=== PATIENT | male | born 2000 | race Caucasian/White ===

== ENCOUNTER 2020-09-20 01:54 | Emergency (ER) | payer OTHER, BC ==
--- NOTE | 2020-09-20 02:34 | EDM.PDOC ---
ED HPI GENERAL MEDICAL PROBLEM - General Chief Complaint: Laceration Stated Complaint: laceration Time Seen by Provider: 09/20/20 01:55 Source of Information: Reports: Patient History Limitations: Reports: No Limitations - History of Present Illness INITIAL COMMENTS - FREE TEXT/NARRATIVE: crushed tip of the 4-5 finger on the left hand in a cyclinder at work. His nail on the 5th finger is bleeding from under the nail. No break in the skin noted. On the tip of the 4th finger there is a small skin avulsion noted. Has increase in pain to the tip of the fingers to both tips. Good sensation noted to the distal tips of both fingers. Unknown when his last tetanus was received. Onset: Sudden Onset Date: 09/20/20 Onset Time: 13:20 Location: Reports: Upper Extremity, Left - Related Data Allergies Allergy/AdvReac Type Severity Reaction Status Date / Time amoxicillin Allergy Cannot Verified 09/20/20 02:02 Remember azithromycin [From Zithromax] Allergy Cannot Verified 09/20/20 02:02 Remember Penicillins Allergy Cannot Verified 09/20/20 02:02 Remember sulfamethoxazole Allergy Cannot Verified 09/20/20 02:02 [From Bactrim] Remember trimethoprim [From Bactrim] Allergy Cannot Verified 09/20/20 02:02 Remember Home Meds: Home Meds . [No Known Home Meds] 09/20/20 [History] Past Medical History - Past Health History Medical/Surgical History: Denies Medical/Surgical History Neurological History: Reports: Seizure - Past Surgical History Other Neurological Surgeries/Procedures: states he had a seizure once when he was 11 Social & Family History - Tobacco Use Tobacco Use Status *Q: Never Tobacco User ED ROS GENERAL - Review of Systems Review Of Systems: See Below Constitutional: Reports: No Symptoms. Denies: Fever Skin: Reports: Wound (tip of the 5th finger on the left is bleeding under the nail. Nail is slightly lose. Tip is swollen. On the tip of the 4th finger there is a small avulsion of the skin. No bleeding noted to the tip.) ED EXAM, SKIN/RASH Exam: See Below Exam Limited By: No Limitations General Appearance: Alert, WD/WN, Mild Distress Extremities: Other (tips of fingers as noted in the HPI. Minimal amount of bleeding noted.) Neurological: Alert, Oriented Course - Orders/Labs/Meds Orders: Active Orders 24 hr Category Date Time Status Vaccines to be Administered [RC] PER UNIT ROUTINE Care 09/20/20 02:26 Active Hand Comp Min 3V Lt [CR] Stat Exams 09/20/20 02:06 Taken Meds: Medications Discontinued Medications Generic Name Dose Route Start Last Admin Trade Name Bahman PRN Reason Stop Dose Admin Diphtheria/Tetanus/Acell Pertussis 0.5 ml 09/20/20 02:26 Diphtheria,Pertussis(Acell),Tetanus Vaccine 0.5 Ml Syringe IM 09/20/20 02:27 .ONCE ONE Lidocaine HCl 5 ml 09/20/20 01:55 09/20/20 02:05 Lidocaine 1% 5 Ml Sdv INJECT 09/20/20 01:56 5 ml ONETIME ONE Administration - Re-Assessments/Exams Free Text/Narrative Re-Assessment/Exam: 09/20/20 02:30 No fractures noted on xray. Departure - Departure Time of Disposition: 02:31 Disposition: Home, Self-Care 01 Condition: Good Clinical Impression: Laceration - Discharge Information *PRESCRIPTION DRUG MONITORING PROGRAM REVIEWED*: Not Applicable *COPY OF PRESCRIPTION DRUG MONITORING REPORT IN PATIENT PIPER: Not Applicable Referrals: PCP,None [Primary Care Provider] - Forms: ED Department Discharge Additional Instructions: keep fingers clean and dry. change the dressing as needed cut the lose flap of skin off when it dries recheck with any new concerns as noted. - Problem List & Annotations (1) Laceration SNOMED Code(s): 433546162 Code(s): [id number] - Status: Acute Current Visit: Yes - Problem List Review Problem List Initiated/Reviewed/Updated: Yes - My Orders Last 24 Hours: My Active Orders 09/20/20 02:06 Hand Comp Min 3V Lt [CR] Stat 09/20/20 02:26 Vaccines to be Administered [RC] PER UNIT ROUTINE - Assessment/Plan Last 24 Hours: My Active Orders 09/20/20 02:06 Hand Comp Min 3V Lt [CR] Stat 09/20/20 02:26 Vaccines to be Administered [RC] PER UNIT ROUTINE
[2020-09-20] MEDS: Diphtheria,Pertussis(Acell),Tetanus Vaccine 0.5 ML Syringe IM ONE (02:35)
== END 2020-09-20 02:45 | disposition home or self-care (01) ==
LOC: CC.ED 01:54
DX: S61.215A Laceration without foreign body of left ring finger without damage to nail, initial encounter (principal); S61.317A Laceration without foreign body of left little finger with damage to nail, initial encounter; Z88.0 Allergy status to penicillin; Z88.1 Allergy status to other antibiotic agents; Z88.2 Allergy status to sulfonamides; Z23 Encounter for immunization; W23.0XXA Caught, crushed, jammed, or pinched between moving objects, initial encounter; Y92.89 Other specified places as the place of occurrence of the external cause; Y99.0 Civilian activity done for income or pay
CPT/HCPCS: 73130-LT; 90471; 90715; 99283-25

== ENCOUNTER 2024-08-20 07:05 | Emergency (ER) | payer BC ==
[2024-08-20 07:21] LABS: BASOPHILS ABSOLUTE AUTO 0.06 10^3/uL (0.00-0.50); BASOPHILS PERCENT AUTO 0.3 % (0-1); EOSINOPHILS ABSOLUTE AUTO 0.12 10^3/uL (0.00-1.50); EOSINOPHILS PERCENT AUTO 0.6 % (0-6); HEMATOCRIT 52.1 % (42.0-52.0); IMMATURE GRAN ABSOLUTE AUTO 0.26 10^3/uL (0.00-0.49); IMMATURE GRAN PERCENT AUTO 1.4 % (0.0-4.9); LYMPHOCYTES ABSOLUTE AUTO 3.33 10^3/uL (0.60-5.00); LYMPHOCYTES PERCENT AUTO 17.3 % (24-44); MEAN CORPUSCULAR HEMOGLOBIN 29.4 pg (27.0-32.0); MEAN CORPUSCULAR HGB CONC 34.9 g/dL (32.0-36.0); MEAN CORPUSCULAR VOLUME 84.2 fL (83.0-97.0); MONOCYTES ABSOLUTE AUTO 1.31 10^3/uL (0.00-1.50); MONOCYTES PERCENT AUTO 6.8 % (0-10); NEUTROPHILS ABSOLUTE AUTO 14.14 x10^3/uL (1.80-8.00); NEUTROPHILS PERCENT AUTO 73.6 % (41-71); PLATELET COUNT,PLT 356 10^3/uL (150-400); RED BLOOD CELL COUNT 6.19 x10^6/uL (4.50-6.00); WHITE BLOOD CELL COUNT,WBC 19.2 10^3/uL (4.0-11.0)
[2024-08-20] MEDS ORDERED: 50% Dextrose in Water 50 ML Syringe IVPUSH PRN ×2 (07:30→07:47)
[2024-08-20] MEDS ORDERED: Glucagon,Human Recombinant 1 MG Vial IM PRN ×2 (07:30→07:47)
[2024-08-20] MEDS: Insulin Regular, Human 100 Units/ML 10 ML Vial IVPUSH ONE (07:35)
[2024-08-20 07:38] LABS: BASE EXCESS VENOUS -27.2; BICARBONATE,VENOUS 4.3; O2 DELIVERY DEVICE ROOM AIR; O2 SATURATION VENOUS 48; PCO2 VENOUS 20.9; PH,VENOUS 6.92 (7.36-7.41); PO2 VENOUS 41.4
[2024-08-20 07:39] LABS: HEMOGLOBIN 18.2 g/dL (14.0-18.0)
[2024-08-20] MEDS: Sodium Chloride 0.9% 1,000 ML IV ONE ×2 (07:39→08:17)
[2024-08-20 07:47] LABS: ALBUMIN 5.2 g/dL (3.4-5.0); BILIRUBIN TOTAL 0.8 mg/dL (0.0-1.0); CREATININE 1.6 mg/dL (0.7-1.3); EST CRCL DRUG DOSING (CG) 86.03 mL/min; MAGNESIUM 2.5 mg/dL (1.8-2.4); POTASSIUM,K 4.2 mEq/L (3.5-5.0); PROTEIN TOTAL,TP 9.4 g/dL (6.4-8.2)
[2024-08-20] MEDS: fentaNYL 50 MCG/ML SDV IVPUSH ONE ×2 (07:53→08:19)
[2024-08-20] MEDS: Ondansetron 4 MG/2 ML SDV IVPUSH PRN (07:59)
[2024-08-20] MEDS: Insulin Regular in 0.9 % NACL 100 ML IV SCH (08:21)
[2024-08-20] MEDS: Sodium Bicarbonate 150 MEQ in Sodium Chloride 0.9% 1,000 ML IV ONE (08:58)
[2024-08-20] MEDS: Potassium Chloride Riders 20 MEQ in Premix Bag 1 BAG IV ONE (09:02)
[2024-08-20] MEDS: Sodium Bicarbonate 150 MEQ in Dextrose 5% in Water 1,000 ML IV ONE (09:23)
== END 2024-08-20 09:20 ==
LOC: CC.ED 07:05
DX: E10.10 Type 1 diabetes mellitus with ketoacidosis without coma (principal); D72.829 Elevated white blood cell count, unspecified; F17.200 Nicotine dependence, unspecified, uncomplicated; Z88.0 Allergy status to penicillin; Z88.2 Allergy status to sulfonamides; Z88.1 Allergy status to other antibiotic agents; Z88.8 Allergy status to other drugs, medicaments and biological substances
CPT/HCPCS: 36415; 71045; 80053; 82803; 83605; 83735; 84484; 85025; 87040; 93005; 93010; 96361; 96365; 96368; 96375; 99284; 99285-25; A9270-GY; J2405; J3010; J3480; J3490; J7030